=== PATIENT | male | born 1995 | race Caucasian/White ===

== ENCOUNTER 2019-02-03 11:16 | Emergency (ER) | payer OTHER ==
[~2019-02-03] VITALS: Ht 182.9 cm; Wt 106.8 kg
[2019-02-03] MEDS ORDERED: IBUP-2071 PO (11:21)
[2019-02-03] MEDS ORDERED: AMOX1TAB16 PO (11:21)
[2019-02-03 11:50] VITALS: BP 121/89
[2019-02-03] MEDS ORDERED: HYDROCODONE/ACETAMINOPHEN 5-325 MG TABLET PO ONE (12:00)
[2019-02-03] MEDS ORDERED: HYDR-4061 PO (18:45)
== END 2019-02-03 12:19 | disposition home or self-care (01) ==
LOC: EMS 11:18
DX: K02.9 Dental caries, unspecified (principal)

== ENCOUNTER 2019-02-03 18:42 | Emergency (ER) | payer OTHER ==
[~2019-02-03] VITALS: Ht 172.7 cm; Wt 77.3 kg
[~2019-02-03 18:42] MED LIST: AMOX1TAB16 PO; IBUP-2071 PO
[2019-02-03] MEDS ORDERED: HYDR-4061 PO (18:45)
[2019-02-03 18:46] VITALS: BP 149/96
[2019-02-03] MEDS ORDERED: BUPIVACAINE HCL/PF 0.25% 10 ML VIAL INJ ONE (20:00)
== END 2019-02-03 20:35 | disposition home or self-care (01) ==
LOC: EMS 18:43
DX: K08.89 Other specified disorders of teeth and supporting structures (principal)
CPT/HCPCS: 64400; 99284; J3490